=== PATIENT | female | born 2000 | race Caucasian/White ===

== ENCOUNTER 2021-03-30 06:10 | Emergency (ER) | payer SELFPAY ==
[2021-03-30 06:16] VITALS: BP 129/86; PULSE 96; RESP 18; TEMP 36.9; O2SAT 98; BMI 31.6
[2021-03-30 07:18] LABS: Add Urine Microscopic? YES; Bilirubin Urine Neg (Negative); Blood Urine 3+ (Negative); Glucose Urine UA Norm (Normal); Ketones Urine Negative (Negative); Leukocyte Esterase Urine Negative (Negative); Nitrate Urine Negative (Negative); Protein Urine Neg (Negative); Specific Gravity, Urine 1.015 (1.005-1.030); Urine Appearance Clear (CLEAR); Urine Color Yellow (Yellow); Urobilinogen Urine Norm (Negative); pH Urine 6 (5-7)
[2021-03-30 07:20] LABS: Bacteria Urine TRACE /hpf; Mucus Urine TRACE /hpf; RBC Urine 0-4 /hpf (0-2); WBC Urine 0-4 /hpf (0-5)
[2021-03-30 07:21] LABS: Add Urine Culture? No
--- NOTE | 2021-03-30 07:47 | W.ED.FEMALGU ---
HPI - Female Genitourinary General: Chief complaint: Vaginal Bleeding Stated complaint: Vaginal bleeding, cramping, Time Seen by Provider: 03/30/21 06:24 Source: patient Mode of arrival: ambulatory Limitations: no limitations History of Present Illness: HPI Narrative: Patient is a 20-year-old female here at approximately 3.5-4 months for concerns of cramping and vaginal bleeding that began around 2 AM this morning. Patient tells me she passed a large gush of blood. She states the blood did not appear to have clots or POC in it. She feels like bleeding has lightened since onset. Still has some minimal pelvic cramping. No vaginal discharge or odor. No new sexual partners or concern for STDs. Patient states was initially confirmed at a clinic in [place]. She has yet to follow-up with OB. MD elicited complaint: vaginal bleeding, pelvic pain and possible miscarriage Onset (ago): hour(s) Quality of pain: cramping Vaginal discharge: none Vaginal bleeding: moderate Exacerbating factors: none Relieving factors: none Associated symptoms: Reports no associated symptoms; Deny abdominal pain, nausea or vaginal discharge Treatment prior to arrival: none Sexual activity: Yes Patient : Yes Review of Systems Const: Denies: fever(s), chills, body aches, fatigue or malaise Eyes: Denies: change in vision Card: Denies: chest pain or palpitations Resp: Denies: dyspnea GI: Denies: abdominal pain, nausea, vomiting, diarrhea or change in stool character : Reports: vaginal bleeding and pelvic pain; Denies: flank pain, difficulty voiding, dysuria, urinary frequency, urinary urgency, hematuria, genital lesions, genital pruritis, vaginal odor or vaginal discharge Musc: Denies: neck pain or back pain Skin/Breast: Denies: rash Physical Exam Const: COMMON NORMALS: no acute distress, patient oriented x3, no limitations and alert GENERAL APPEARANCE: cooperative NUTRITIONAL APPEARANCE: overweight ORIENTATION/CONSCIOUSNESS: Yes awake, Yes oriented to person, Yes oriented to place and Yes oriented to time HENMT: COMMON NORMALS: normocephalic and atraumatic HEAD & SCALP: normocephalic and atraumatic Resp: COMMON NORMALS: normal respiratory effort and clear to auscultation bilaterally AUSCULTATION: clear to auscultation bilaterally Cardio: COMMON NORMALS: regular rate and regular rhythm RATE: regular rate RHYTHM: regular rhythm GI: COMMON NORMALS: Normal to inspection, nondistended, normoactive bowel sounds present, Soft to palpation, non-tender, No hepatosplenomegaly present and no masses PALPATION: Yes Soft to palpation and Yes No hepatosplenomegaly present : COMMON NORMALS: Yes no CVA tenderness BLADDER/KIDNEY EXAM: Yes no CVA tenderness Back/Pelvis: COMMON NORMALS: no CVA tenderness Extremity: COMMON NORMALS: normal to inspection, no calf tenderness and no pedal edema Neuro: COMMON NORMALS: patient oriented x3 SENSORIUM/ORIENTATION: Yes alert, Yes oriented to person, Yes oriented to place and Yes oriented to time Skin: COMMON NORMALS: no rashes or lesions noted GENERAL SKIN EXAM: no rashes or lesions noted Course Vital Signs: Vital signs: Vital Signs Temperature 98.4 F 03/30/21 06:16 Pulse Rate 95 03/30/21 08:58 Respiratory Rate 18 03/30/21 08:58 Blood Pressure 114/76 03/30/21 08:58 Pulse Oximetry 98 03/30/21 08:58 MDM - Female MDM Narrative: Medical decision making narrative: Patient has a blighted ovum. Will have her follow up with [facility] for further management and surveillance. Lab Data: Labs: Lab Results 03/30/21 03/30/21 03/30/21 Range/Units 06:47 08:56 08:56 WBC 7.0 (4.0-10.0) 10^3/ uL RBC 4.23 (4.1-5.3) 10^6/u L Hgb 13.1 (11.5-15.3) g/dL Hct 39.6 (37.0-47.0) % MCV 93.6 (81-99) fL MCH 31.0 (28.0-34.0) pg MCHC 33.1 (30.0-36.0) g/dL RDW 12.1 (12.1-15.1) % Plt Count 244 (130-400) 10^3/c mm MPV 9.5 (7.4-10.4) fL Neut % (Auto) 66.9 % Lymph % (Auto) 24.2 % [place] % (Auto) 5.3 % Eos % (Auto) 2.7 % Baso % (Auto) 0.6 % Neut # (Auto) 4.66 (1.8-7.7) 10^3/u L Lymph # (Auto) 1.7 (0.8-4.8) 10^3/u L [place] # (Auto) 0.4 (0.2-0.9) 10^3/u L Eos # (Auto) 0.2 (0.0-0.8) 10^3/u L Baso # (Auto) 0.0 (0.0-0.1) 10^3/u L Nucleated RBC % (a uto) 0 % Nucleated RBCs # 0.0 /100WBC Sodium 137 (136-145) mmol/L Potassium 4.2 (3.5-5.1) mmol/L Chloride 101 (98-107) mmol/L Carbon Dioxide 26 (22-29) mmol/L Anion Gap 14.2 (5-19) BUN 10 (6-20) mg/dL Creatinine 0.5 (0.5-0.9) mg/dL GFR Calculation 154.3 H (90-130) mL/min Glucose 94 (65-115) mg/dL Calculated Osmolal ity 283 L (285-295) mOsm/k g Calcium 8.7 (8.5-10.5) mg/dL Total Bilirubin 0.2 (0.15-1.2) mg/dL AST 13 (0-32) U/L ALT 12 (0-33) U/L Alkaline Phosphata se 66 (35-105) IU/L Total Protein 6.8 (6.6-8.7) g/dL Albumin 3.9 (3.5-5.2) g/dL Globulin 2.9 (1.3-4.6) g/dL Ser , [place] i-Qnt 4508.00 mIU/mL Urine Color Yellow (Yellow) Urine Appearance Clear (CLEAR) Urine pH 6 (5-7) Ur Specific Gravit y 1.015 (1.005-1.030) Urine Protein Neg (Negative) Urine Glucose (UA) Norm (Normal) Urine Ketones Negative (Negative) Urine Blood 3+ H (Negative) Urine Nitrate Negative (Negative) Urine Bilirubin Neg (Negative) Urine Urobilinogen Norm (Negative) mg/dL Ur Leukocyte Pooja ase Negative (Negative) Urine RBC 0-4 H (0-2) /hpf Urine WBC 0-4 H (0-5) /hpf Ur Squamous Epith Cells 5-10 H (0-5) /hpf Amorphous Sediment Not Reportable Urine Bacteria Trace (NONE) /hpf Urine Mucus Trace /hpf Imaging Data: US OB: Radiologist's impression: [facility] [address] [address] Ultrasound Report Signed Patient: Abdullahi Dubose Unit #: [id number] : [id number] Age/Sex: 20 / F ADM Date: 03/30/21 Loc: ER Room/Bed: Attending Dr: Ordering Provider/Ordering MD: Yuko Owens Date of Service: 03/30/21 Procedure(s): US OB lmt with transvaginal Accession Number(s): [id number] Report Number: [id number] WS: [id number] US OB lmt with transvaginal REASON FOR EXAM: reports 3.5-4 mo ; bleeding/cramping FINDINGS: The uterus contains a large empty collapsing sac with no identifiable embryo or yolk sac. No blood clots identified. Normal ovaries with normal blood flow are noted. There is no fluid in the cul-de-sac. No pelvic mass is suggesting ectopic is identified. US/US OB lmt with transvaginal IMPRESSION: Presumed blighted ovum. Dictated By: Mike Pereira Jr, MD Signed By: Mike Pereira Jr, MD Signed Date/Time: 03/30/2159 DD/ 0856 Discharge Plan Discharge Patient Disposition: Home Clinical Impression: Anembryonic Condition: Stable Discharge Orders: Discharge ED (Routine); Ordered 03/30/21 Ordered By: Yuko Owens Referrals: Jung Castillo, PHYSICAL THERAPY COORDINATOR-C [Primary Care Provider] - Activity Restrictions/Additional Instructions: As we discussed you need to follow-up with Women's Health. Case management should contact you to help you set you up with this appointment. You can return to the emergency department for severe vaginal bleeding or pain or any other concerns you may have. Coding Level of Care Code ED Varnisher Apprentice for Chg Fwd Exam Comprehensive
--- NOTE | 2021-03-30 07:54 | US_ITS ---
WS: [id number] US OB lmt with transvaginal REASON FOR EXAM: reports 3.5-4 mo ; bleeding/cramping FINDINGS: The uterus contains a large empty collapsing sac with no identifiable embryo or yolk sac. No blood cl ots identified. Normal ovaries with normal blood flow are noted. There is no fluid in the cul-de-sac. No pelvic mass is suggesting ectopic is identified. US/US OB lmt with transvaginal IMPRESSION: Presumed blighted ovum.
[2021-03-30 08:07] VITALS: BP 119/64; PULSE 97; RESP 18; O2SAT 99
[2021-03-30 08:58] VITALS: BP 114/76; PULSE 95; RESP 18; O2SAT 98
[2021-03-30 09:04] LABS: Basophils % 0.6 %; Eosinophils # 0.2 10^3/uL (0.0-0.8); Eosinophils % 2.7 %; Hematocrit 39.6 % (37.0-47.0); Hemoglobin 13.1 g/dL (11.5-15.3); Lymphocytes # 1.7 10^3/uL (0.8-4.8); Lymphocytes % 24.2 %; Mean Corpuscular HGB Conc 33.1 g/dL (30.0-36.0); Mean Corpuscular Volume 93.6 fL (81-99); Mean Platelet Volume 9.5 fL (7.4-10.4); Monocytes # 0.4 10^3/uL (0.2-0.9); Monocytes % 5.3 %; Neutrophils # 4.66 10^3/uL (1.8-7.7); Neutrophils % 66.9 %; Nucleated Red Blood Cells % 0 %; Platelet Count 244 10^3/cmm (130-400); Red Blood Count 4.23 10^6/uL (4.1-5.3); Red Cell Distribution Width 12.1 % (12.1-15.1)
[2021-03-30 09:33] LABS: Alanine Aminotransferase 12 U/L (0-33); Albumin Level 3.9 g/dL (3.5-5.2); Alkaline Phosphatase 66 IU/L (35-105); Anion Gap 14.2 (5-19); Aspartate Amino Transferase 13 U/L (0-32); Blood Urea Nitrogen 10 mg/dL (6-20); Calcium 8.7 mg/dL (8.5-10.5); Carbon Dioxide 26 mmol/L (22-29); Chloride 101 mmol/L (98-107); Globulin 2.9 g/dL (1.3-4.6); Glomerular Filtration Rate 154.3 mL/min (90-130); Glucose 94 mg/dL (65-115); Osmolality Calculated 283 mOsm/kg (285-295); Potassium 4.2 mmol/L (3.5-5.1); Sodium 137 mmol/L (136-145); Total Bilirubin 0.2 mg/dL (0.15-1.2); Total Protein 6.8 g/dL (6.6-8.7)
[2021-03-30 09:40] VITALS: BP 125/83; PULSE 91; RESP 18; O2SAT 97
--- NOTE | 2021-03-30 09:59 | DCPLANNER ---
Addendum entered by Kristy Goodwin 04/13/21 09:40: comsec manager called the [facility], spoke with Aleena to confirm that a follow up appointment had been scheduled for patient. comsec manager was told that when clinic called patient to schedule a follow up appointment, that phone number was disconnected. Clinic sent a letter to patient informing patient to call clinic to schedule an appointment. Original Note: comsec manager had message to schedule a follow up appointment for patient with [facility]. comsec manager called the [facility], spoke with Aleena, gave clinic patients information. comsec manager was told that patients information would be printed and reviewed. Clinic will call patient with appointment information.
== END 2021-03-30 09:40 | disposition home or self-care (01) ==
PROVIDERS: Emergency Medicine; Emergency Provider Physician Assistant; PCP Nurse Practitioner
DX: O02.0 Blighted ovum and nonhydatidiform mole (principal)
CPT/HCPCS: 76815; 76817; 80053; 81001; 84702; 85025; 99283

== ENCOUNTER 2021-03-31 18:28 | Emergency (ER) | payer SELFPAY ==
[2021-03-31 18:58] VITALS: BP 127/82; PULSE 119; RESP 22; TEMP 36.5; O2SAT 96; BMI 31.6
--- NOTE | 2021-03-31 19:03 | W.ED.FEMALGU ---
HPI - Female Genitourinary General: Chief complaint: Urogenital-Female Stated complaint: severe cramping heavy bleeding Time Seen by Provider: 03/31/21 18:56 Source: patient Mode of arrival: ambulatory Limitations: no limitations History of Present Illness: HPI Narrative: 20-year-old female who is here with vaginal bleeding. She states that she is roughly 5 to 6 weeks . She was seen yesterday and had a quantitative in the 4000s and ultrasound showed a blighted ovum. States today started having severe lower abdominal cramping along with vaginal bleeding. She states she is passing multiple clots and going through multiple pads. She denies any worsening improving factors. Denies any vomiting or diarrhea. Associated symptoms: Deny abdominal pain, headache(s) or nausea Review of Systems Const: Denies: fever(s), chills, body aches or change in appetite Eyes: Denies: blurry vision or eye discomfort ENMT: Denies: throat pain or dental pain Card: Denies: chest pain Resp: Denies: dyspnea GI: Denies: abdominal pain, nausea, vomiting or diarrhea : Reports: vaginal bleeding Musc: Denies: neck pain or back pain Skin/Breast: Denies: rash Neuro: Denies: headache(s) Psych: Denies: depression Harris/Lymph: Denies: easy bruising All/Imm: Denies: urticaria Physical Exam Const: COMMON NORMALS: no acute distress, patient oriented x3 and healthy appearing HENMT: COMMON NORMALS: normocephalic and atraumatic HEAD & SCALP: normocephalic and atraumatic Eye: COMMON NORMALS: Equal, round and reactive pupils present and EOMs intact bilaterally PUPIL: Yes Equal, round and reactive pupils present Neck/C-Spine: COMMON NORMALS: full ROM and supple Chest: COMMONS NORMALS: normal inspection of the chest and normal palpation of entire chest wall Resp: COMMON NORMALS: normal respiratory effort, No retractions, No use of accessory muscles and clear to auscultation bilaterally AUSCULTATION: clear to auscultation bilaterally Cardio: COMMON NORMALS: regular rate, regular rhythm and No murmurs present (Cardio) RATE: regular rate RHYTHM: regular rhythm GI: COMMON NORMALS: Normal to inspection, nondistended, normoactive bowel sounds present, Soft to palpation, non-tender and no masses PALPATION: Yes Soft to palpation : OTHER: Large amount of blood in vaginal vault. Patient did have a grounding sac stuck in her cervix. Is able to remove the whole sac and bleeding is since resolved. Extremity: COMMON NORMALS: normal to inspection and full ROM Neuro: COMMON NORMALS: patient oriented x3, moves all extremities and no focal motor deficits Psych: COMMON NORMALS: mental status grossly normal, Normal thought process present and cooperative THOUGHT PROCESS: Normal thought process present Skin: COMMON NORMALS: no rashes or lesions noted and no wounds GENERAL SKIN EXAM: no rashes or lesions noted Course Vital Signs: Vital signs: Vital Signs Temperature 97.7 F 03/31/21 18:58 Pulse Rate 102 H 03/31/21 20:30 Respiratory Rate 16 03/31/21 20:30 Blood Pressure 123/72 03/31/21 19:45 Pulse Oximetry 97 03/31/21 20:30 MDM - Female MDM Narrative: Medical decision making narrative: Patient presents here with miscarriage. Sac was stuck the cervix is able to remove and patient was observed. She had no further bleeding. Her hemoglobin here is normal. Her Rh type is positive. Ultrasound yesterday showed a blighted ovum. She is to follow-up with her OB and return if worsening. She understands agrees to plan. Lab Data: Labs: Lab Results 03/31/21 03/31/21 Range/Units 20:16 20:16 WBC 17.5 H (4.0-10.0) 10^3/ uL RBC 3.84 L (4.1-5.3) 10^6/u L Hgb 12.0 (11.5-15.3) g/dL Hct 35.9 L (37.0-47.0) % MCV 93.5 (81-99) fL MCH 31.3 (28.0-34.0) pg MCHC 33.4 (30.0-36.0) g/dL RDW 12.2 (12.1-15.1) % Plt Count 220 (130-400) 10^3/c mm MPV 9.9 (7.4-10.4) fL Neut % (Auto) 90.9 % Lymph % (Auto) 4.9 % [place] % (Auto) 3.5 % Eos % (Auto) 0.1 % Baso % (Auto) 0.3 % Neut # (Auto) 15.91 H (1.8-7.7) 10^3/u L Lymph # (Auto) 0.9 (0.8-4.8) 10^3/u L [place] # (Auto) 0.6 (0.2-0.9) 10^3/u L Eos # (Auto) 0.0 (0.0-0.8) 10^3/u L Baso # (Auto) 0.1 (0.0-0.1) 10^3/u L Nucleated RBC % (a uto) 0 % Nucleated RBCs # 0.0 /100WBC Ser , Dillan i-Qnt 1907.00 mIU/mL Discharge Plan Discharge Patient Disposition: Home Clinical Impression: Miscarriage Condition: Stable Prescriptions: New hydrocodone-acetaminophen 5-325 mg tablet 1 tab PO Q6H PRN (Reason: pain) Qty: 14 RF: 0 Discharge Orders: Discharge ED (Routine); Ordered 03/31/21 Ordered By: Isra Alatorre Referrals: Jung Castillo, DINING ROOM HOST-C [Primary Care Provider] - 1-3 days Discharge Diet: Advance as tolerated Discharge Activity: Resume usual activity Patient Instructions: Spontaneous Miscarriage (ED), Opioid Safety Coding Level of Care Code ED Fire Observer for Tram Fwd Exam Comprehensive
[2021-03-31 19:22] VITALS: BP 135/84; PULSE 102; RESP 18; O2SAT 96
[2021-03-31 19:45] VITALS: BP 123/72; PULSE 101; RESP 18; O2SAT 96
[2021-03-31 20:30] VITALS: PULSE 102; RESP 16; O2SAT 97
[2021-03-31 20:35] LABS: Basophils # 0.1 10^3/uL (0.0-0.1); Basophils % 0.3 %; Eosinophils % 0.1 %; Hematocrit 35.9 % (37.0-47.0); Lymphocytes # 0.9 10^3/uL (0.8-4.8); Lymphocytes % 4.9 %; Mean Corpuscular HGB Conc 33.4 g/dL (30.0-36.0); Mean Corpuscular Hemoglobin 31.3 pg (28.0-34.0); Mean Corpuscular Volume 93.5 fL (81-99); Mean Platelet Volume 9.9 fL (7.4-10.4); Monocytes # 0.6 10^3/uL (0.2-0.9); Monocytes % 3.5 %; Neutrophils # 15.91 10^3/uL (1.8-7.7); Neutrophils % 90.9 %; Nucleated Red Blood Cells % 0 %; Platelet Count 220 10^3/cmm (130-400); Red Blood Count 3.84 10^6/uL (4.1-5.3); Red Cell Distribution Width 12.2 % (12.1-15.1); White Blood Count 17.5 10^3/uL (4.0-10.0)
[2021-03-31] MEDS: sodium chloride 0.9% 1,000 ML 999 ML IV (20:37)
[2021-03-31] MEDS: miSOPROStol 200 mcg Tablet 600 MCG PO (20:38)
[2021-03-31 21:30] VITALS: BP 112/87; PULSE 110; RESP 16; O2SAT 99
== END 2021-03-31 21:34 | disposition home or self-care (01) ==
PROVIDERS: Emergency Provider Emergency Medicine; PCP Nurse Practitioner
DX: O03.9 Complete or unspecified spontaneous abortion without complication (principal)
CPT/HCPCS: 84702; 85025; 86850; 86900; 96360; 99283; J7030

== ENCOUNTER → 2022-01-19 10:00 | Outpatient (BNVA) | payer SELFPAY | PROVIDERS: PCP Nurse Practitioner; Visit Provider Obstetrics & Gynecology | DX: Z34.90 Encounter for supervision of normal pregnancy, unspecified, unspecified trimester (principal) | CPT/HCPCS: 80307; 81000; 87086; 87491; 87591; 87661; 88175 ==

== ENCOUNTER → 2022-01-24 15:33 | Outpatient (BNVA) | payer SELFPAY | PROVIDERS: PCP Nurse Practitioner; Visit Provider Obstetrics & Gynecology | DX: Z34.90 Encounter for supervision of normal pregnancy, unspecified, unspecified trimester (principal) | CPT/HCPCS: 84443; 85025; 86592; 86762; 86803; 86850; 86900; 87340 ==

== ENCOUNTER → 2022-03-03 11:02 | Outpatient (BNVA) | payer SELFPAY | PROVIDERS: PCP Nurse Practitioner; Visit Provider Obstetrics & Gynecology | DX: Z34.90 Encounter for supervision of normal pregnancy, unspecified, unspecified trimester (principal) | CPT/HCPCS: 82950; 85025 ==

== ENCOUNTER → 2022-03-24 15:23 | Outpatient (BNVA) | payer SELFPAY | PROVIDERS: PCP Nurse Practitioner; Visit Provider Obstetrics & Gynecology | DX: Z34.90 Encounter for supervision of normal pregnancy, unspecified, unspecified trimester (principal) | CPT/HCPCS: 81000 ==

== ENCOUNTER → 2022-04-11 11:35 | Outpatient (BNVA) | payer SELFPAY | PROVIDERS: PCP Nurse Practitioner; Visit Provider Obstetrics & Gynecology | DX: Z34.90 Encounter for supervision of normal pregnancy, unspecified, unspecified trimester (principal) | CPT/HCPCS: 81000; 87081 ==

== ENCOUNTER 2022-04-22 14:12 | Outpatient (CLI) | payer BC, SELFPAY ==
[2022-04-22 14:12] VITALS: BMI 39.9
[2022-04-22 14:38] VITALS: BP 122/78; PULSE 99; RESP 16
[2022-04-22 14:40] VITALS: TEMP 35.9
[2022-04-22 14:52] VITALS: BP 129/86; PULSE 101
[2022-04-22 15:00] LABS: Basophils % 0.3 %; Eosinophils # 0.1 10^3/uL (0.0-0.8); Hematocrit 37.5 % (37.0-47.0); Hemoglobin 12.5 g/dL (11.5-15.3); Lymphocytes # 1.9 10^3/uL (0.8-4.8); Lymphocytes % 15.3 %; Mean Corpuscular HGB Conc 33.3 g/dL (30.0-36.0); Mean Corpuscular Hemoglobin 31.1 pg (28.0-34.0); Mean Corpuscular Volume 93.3 fl (81-99); Mean Platelet Volume 10.8 fL (7.4-10.4); Monocytes # 0.6 10^3/uL (0.2-0.9); Neutrophils # 9.54 10^3/uL (1.8-7.7); Neutrophils % 77.9 %; Nucleated Red Blood Cells % 0 %; Platelet Count 222 10^3/cmm (130-400); Red Blood Count 4.02 10^6/uL (4.1-5.3); Red Cell Distribution Width 12.3 % (12.1-15.1); White Blood Count 12.3 10^3/uL (4.0-10.0)
[2022-04-22 15:07] VITALS: BP 122/73; PULSE 91
[2022-04-22 15:10] LABS: Add Urine Culture? No; Bilirubin Urine Neg (Negative); Blood Urine Neg (Negative); Glucose Urine UA Norm (Normal); Ketones Urine Negative (Negative); Leukocyte Esterase Urine Negative (Negative); Nitrate Urine Negative (Negative); Protein Urine Neg (Negative); Specific Gravity, Urine 1.005 (1.005-1.030); Squamous Epithelial Cell Urine 0-4 /hpf (0-5); Urine Appearance Clear (CLEAR); Urine Color Yellow (Yellow); Urobilinogen Urine Norm (Negative); WBC Urine 0-4 /hpf (0-5); pH Urine 6.5 (5-7)
[2022-04-22 15:21] LABS: Urine Creatinine 80 mg/dL (28-217); Urine Protein Random 8 mg/dL
[2022-04-22 15:22] VITALS: BP 117/70; PULSE 93
[2022-04-22 15:26] LABS: Alanine Aminotransferase 17 U/L (0-33); Albumin Level 3.4 g/dL (3.5-5.2); Alkaline Phosphatase 158 U/L (35-105); Anion Gap 15.5 (5-19); Aspartate Amino Transferase 13 U/L (0-32); Blood Urea Nitrogen 6 mg/dL (6-20); Calcium 8.9 mg/dL (8.5-10.5); Carbon Dioxide 22 mmol/L (22-29); Chloride 102 mmol/L (98-107); Globulin 3.3 g/dL (1.3-4.6); Glomerular Filtration Rate 197.8 mL/min (90-130); Glucose 86 mg/dL (65-115); Osmolality Calculated 279 mOsm/kg (285-295); Potassium 3.5 mmol/L (3.5-5.1); Sodium 136 mmol/L (136-145); Total Bilirubin 0.2 mg/dL (0.15-1.2); Total Protein 6.7 g/dL (6.6-8.7); Uric Acid 4.8 mg/dL (2.4-5.7)
[2022-04-22 15:37] VITALS: BP 120/70; PULSE 85
== END 2022-04-22 15:45 | disposition home or self-care (01) ==
LOC: OPOB 14:17 → OBGYN 14:18
PROVIDERS: Obstetrics & Gynecology; PCP Nurse Practitioner; Visit Provider Obstetrics & Gynecology
DX: O16.9 Unspecified maternal hypertension, unspecified trimester (principal); Z3A.00 Weeks of gestation of pregnancy not specified
CPT/HCPCS: 80053; 81000; 81001; 82570; 84156; 84550; 85025

== ENCOUNTER → 2022-05-06 14:18 | Outpatient (BNVA) | payer BC, SELFPAY | PROVIDERS: PCP Obstetrics & Gynecology; Visit Provider Obstetrics & Gynecology | DX: O13.9 Gestational [pregnancy-induced] hypertension without significant proteinuria, unspecified trimester (principal); Z3A.00 Weeks of gestation of pregnancy not specified | CPT/HCPCS: 81000 ==

== ENCOUNTER 2022-05-15 04:23 | Inpatient (IN) | payer BC, SELFPAY ==
[2022-05-15] VITALS (98 sets, daily range): BP systolic 91–164; BP diastolic 50–97; PULSE 73–203; RESP 17–18; TEMP 36.8; O2SAT 97–100; BMI 40.7
[2022-05-15 03:52] LABS: Nitrazine Paper, PH Inconclusive
[2022-05-15 03:53] LABS: Actim Prom Positive
[2022-05-15 04:27] LABS: Basophils % 0.4 %; Eosinophils # 0.2 10^3/uL (0.0-0.8); Eosinophils % 1.7 %; Hematocrit 36.7 % (37.0-47.0); Hemoglobin 12.2 g/dL (11.5-15.3); Lymphocytes % 17.5 %; Mean Corpuscular HGB Conc 33.2 g/dL (30.0-36.0); Mean Corpuscular Hemoglobin 30.9 pg (28.0-34.0); Mean Corpuscular Volume 92.9 fl (81-99); Mean Platelet Volume 10.8 fL (7.4-10.4); Monocytes # 0.7 10^3/uL (0.2-0.9); Monocytes % 6.4 %; Neutrophils # 8.23 10^3/uL (1.8-7.7); Neutrophils % 73.6 %; Nucleated Red Blood Cells % 0 %; Platelet Count 200 10^3/cmm (130-400); Red Blood Count 3.95 10^6/uL (4.1-5.3); Red Cell Distribution Width 12.5 % (12.1-15.1); White Blood Count 11.2 10^3/uL (4.0-10.0)
[2022-05-15] MEDS: lactated ringers 1,000 ML 999 ML IV ×2 (04:47→06:12)
--- NOTE | 2022-05-15 05:50 | ANES.PREANE2 ---
Pre-Anesthetic Assessment Height/Weight: Height 1.65 m Weight 111.13 kg Pulse BP 94 132/90 05/15/22 05:37 05/15/22 05:37 Preop Diagnosis: labor pain epidural Familial anesthetic complications: none Was Beta Angeli taken within 24 hours: N/A Was Clonidine taken within 24 hours: N/A Social No alcohol and No tobacco Exam alert, oriented x 3, clear to auscultation bilaterally and regular rate & rhythm Airway Submandibular: within normal limits Cervical ROM: within normal limits Mallampati: Class II Dentition: full Pulmonary None reported CV/HEM None reported None reported Hepatic None reported GI Gastroesophageal Reflux Disease Metabolic None reported Musc/skel None reported Neuropsych None reported Anesthetic Plan ASA status: 2 Anesthesia: Regional (specify below) Risk of > 500 ml blood loss (7ml/kg in children): No Medications/Allergies Home Medications Medication Instructions Recorded Confirmed Last Taken Type PNV 153-FA 400 mcg-om3 35 mg-dha 1 tab PO DAILY 01/19/22 05/06/22 04/21/22 20:00 History 25 mg-epa 5 mg-fish oil chew 1 tab tablet ( Gummies) Allergies Allergy/AdvReac Type Severity Reaction Status Date / Time No Known Allergies Allergy Verified 05/06/22 14:07 Current Medications Generic Name Dose Route Start Last Admin Trade Name Freq PRN Reason Stop Dose Admin Lactated Ringer's 1,000 mls @ 999 mls/hr 05/15/22 04:37 05/15/22 04:47 Lactated Ringers IV 999 mls/hr .Q1H1M PRN Administration See label comments PFSH Anesthesia Medical History No pertinent past medical history neghx: htn, dm, thyroid, dvt/pe PCP: none Surgical History History of 2014 Family History Grandmother Breast cancer maternal Diabetes maternal Family/Other Breast cancer maternal great grandma Diabetes maternal and paternal great grandmother Mother Hypertension Grandfather Hypertension maternal Stroke maternal Denies family history of Colon cancer Ovarian cancer Heart disease Hypercholesteremia Uterine cancer Thyroid disease Social History Smoking and tobacco status: former smoker Female Reproductive History Date of last menstrual period: 12/22/20 : 5 Data Anesthesia : 05/15/22 04:12 Short CBC 05/15/22 Range/Units 04:12 WBC 11.2 H (4.0-10.0) 10^3/uL Hgb 12.2 (11.5-15.3) g/dL Hct 36.7 L (37.0-47.0) % MCV 92.9 (81-99) fl Plt Count 200 (130-400) 10^3/cmm Neut % (Auto) 73.6 % Neut # (Auto) 8.23 H (1.8-7.7) 10^3/uL Cardiac Studies: No Data to Display
--- NOTE | 2022-05-15 06:27 | P.ANES_ITS ---
Anesthesia Procedures Procedure/Date: 05/15/22 epidural Procedure Narrative: epidural complete, bolus given, epidural pump initiated with AUTOMATIC LATHE TENDER education given, vitals taken during procedure using OBIX system and satisfactory throughout, patient admits to decrease pain, report of procedure to OB RN Epidural: Time Out Performed: Yes Consents Signed: Procedure Consent Consent: requested by attending/covering physician, from patient, risks and benefits reviewed and patient agrees to proceed Lumbar Level: L3-L4 Epidural position: sitting Epidural procedure: sterile prep of area, 1% lidocaine to numb the area (3 mL), 18 g needle, negative for paresthesia passed, neg for paresthesia, test dose given, 1.5% xylocaine 1:200k epi (5 mL), 0.2% Ropivacaine bolus ml (5 mL), placed PCEA, no systemic response, sterile dressing applied, L.U.D. no apparent complications and 0.2% Ropiavacaine @ mls/hr (13 mL/hr)
[2022-05-15 06:42] LABS: Amphetamines Screen Urine Negative (Negative); Barbiturates Screen Urine Negative (Negative); Benzodiazepines Screen Urine Negative (Negative); Cocaine Screen Urine Negative (Negative); Opiate Screen Urine Negative (Negative); PCP Screen Urine Negative (Negative); THC Screen Urine Positive (Negative)
--- NOTE | 2022-05-15 08:52 | P.HPUD_ITS ---
Labor & Delivery H&P Update Date of Procedure: May 15, 2022 Date H&P Performed: 05/06/22 Changes to previous documentation: Abdullahi is a 21-year-old G5, P1 031 with an IUP 41W2D dated by an 18-week ultrasound. She presented to L&D early this morning after experiencing gross rupture of membranes at approximately 0230 on 05/15/2022. Reports that painful uterine contractions started at 2300 on 05/14/2022. She has history of having 1 primary section secondary to breech presentation. This gestation is complicated by class III obesity, history of section, and desire for TOLAC/. She is GBS negative. She is accompanied by her Yamil, they have another son at home, Chadwick Sheldon. The couple is expecting their 2nd son, Abihjit Perez. Admission Diagnosis: * IUP 41W2D * Spontaneous rupture of membranes (SROM) * Class III obesity Preop diagnosis: labor pain Primary indication for procedure: Spontaneous rupture of membranes in early labor with a history of section. Planned procedure: TOLAC/
--- NOTE | 2022-05-15 08:53 | P.PN_ITS ---
TAPROOM ATTENDANT Subjective Subjective: Interval history: Abdullahi is a 21-year-old G5, P1 031 with an IUP 41W2D dated by an 18-week ultrasound. She presented to L&D early this morning after experiencing gross rupture of membranes at approximately 0230 on 05/15/2022. Reports that painful uterine contractions started at 2300 on 05/14/2022. She has history of having 1 primary section secondary to breech presentation. This gestation is complicated by class III obesity, history of section, and desire for TOLAC/. She is GBS negative. She is accompanied by her Yamil, they have another son at home, Chadwick Sheldon. The couple is expecting their 2nd son, Abhijit Perez. Since arrival has had an epidural placed without incident. Informed Consent for /TOLAC: Approximately 60 to 80% of appropriate candidate to attempt will be successful. A avoids major abdominal surgery, lowers risk of hemorrhage and infection, and shortens recovery. It may also help avoid the possible future risks of having multiple such as hysterectomy, bowel and bladder injury, transfusion of blood products, infection, and abnormal placenta conditions (placenta previa and placenta accreta). Both repeat and a TOLAC carry risks including maternal hemorrhage, infection, operative injury, blood clots, hysterectomy, and . Both maternal injury recurrent history a TOLAC happens when a repeat becomes necessary after the TOLAC fails. A successful has fewer complications then an elective repeat while a failed TOLAC has more complications than an elective repeat . Patient expressed understanding and desires to proc eed with a trial of labor with the ultimate goal of delivering vaginally. Labor: Dilation (cm): 6 Effacement (%): 80 Station: 0 Amniotic Membrane Status: Ruptured Monitor Mode: External Contraction Frequency: 3 (2-3) Contraction Pattern: Irregular Status: Category I (briefly Category II) Vitals/I&O/Wt Last Vital Signs Temp 98.2 F 05/15/22 04:00 Pulse 82 05/15/22 08:41 Resp 17 05/15/22 07:19 BP 115/63 05/15/22 08:41 Pulse Ox 99 05/15/22 08:12 O2 Del Method 05/15/22 03:53 05/14/22 05/15/22 05/15/22 22:59 06:59 14:59 Intake Total 1000 / 1000 Balance 1000 / 1000 Weight last 48 hrs Weight 245 lb Physical Exam Const: COMMON NORMALS: no acute distress, patient oriented x3 and alert Neuro: COMMON NORMALS: patient oriented x3 SENSORIUM/ORIENTATION: Yes alert Psych: COMMON NORMALS: mental status grossly normal, Normal thought process present, cooperative, normal affect and speech normal SPEECH: Yes normal speech THOUGHT PROCESS: Normal thought process present Urinary Catheter Management: Espinoza: Cath Placed During This Visit: yes Reason for Continuing Indwelling Catheter: Accurate Measurement of Urinary Output in Critically Ill Patients Urinary Catheter Date of Insertion: 05/15/22 Urinary Catheter Time of Insertion: 06:42 Data : 05/15/22 04:12 A&P Assessment and plan (1) 41 weeks gestation of : Status: Acute (2) Spontaneous rupture of membranes: * Initiate Pitocin augmentation. * Continue to titrate epidural. * Anticipate . Status: Acute (3) Alteration in comfort associated with uterine contractions: Status: Acute (4) Obesity (BMI 30-39.9): Status: Acute Attestations Medical Necessity Statement*: TOLAC, spontaneous rupture of membranes Coding Level of Care Code Acute Facility Manager Histology for Chg Fwd Diagnoses 41 weeks gestation of Z3A.41 Spontaneous rupture of membranes Alteration in comfort associated with uterine contractions N85.8 Obesity (BMI 30-39.9) E66.9
[2022-05-15] MEDS: oxytocin 30 UNIT/500 ML BAG IV (10:30)
[2022-05-15] MEDS: ondansetron 2 mg/ML SDV 2 mL 4 MG IVP (10:58)
--- NOTE | 2022-05-15 13:06 | PM.OBGYPN ---
COLORER MACHINE Subjective Subjective: Interval history: Abdullahi is a 21-year-old G5, P1 031 with an IUP 41W2D dated by an 18-week ultrasound. She presented to L&D early this morning after experiencing gross rupture of membranes at approximately 0230 on 05/15/2022. Reports that painful uterine contractions started at 2300 on 05/14/2022. She has history of having 1 primary section secondary to breech presentation. This gestation is complicated by class III obesity, history of section, and desire for TOLAC/. She is GBS negative. She is accompanied by her Yamil, they have another son at home, Chadwick Sheldon. The couple is expecting their 2nd son, Abhijit Perez. Since arrival has had an epidural placed without incident. Pitocin is currently infusing at 6 milliunits/min. Labor: Pain Control: tolerating well Dilation (cm): 9 Effacement (%): 90 Station: 0 Amniotic Membrane Status: Ruptured Monitor Mode: External Contraction Frequency: 3 (2-3) Contraction Pattern: Regular Status: Category II (Baseline 125 /moderate variability/15 x 15 accelerations present/variable decelerations present) Vitals/I&O/Wt Last Vital Signs Temp 98.2 F 05/15/22 04:00 Pulse 77 05/15/22 12:58 Resp 17 05/15/22 07:19 BP 91/50 05/15/22 12:58 Pulse Ox 99 05/15/22 08:12 O2 Del Method 05/15/22 03:53 05/14/22 05/15/22 05/15/22 22:59 06:59 14:59 Intake Total 1000 / 1000 343 / 343 Balance 1000 / 1000 343 / 343 Weight last 48 hrs Weight 245 lb Physical Exam Urinary Catheter Management: Espinoza: Cath Placed During This Visit: yes Reason for Continuing Indwelling Catheter: Accurate Measurement of Urinary Output in Critically Ill Patients Urinary Catheter Date of Insertion: 05/15/22 Urinary Catheter Time of Insertion: 06:42 Data : 05/15/22 04:12 A&P Assessment and plan (1) Obesity (BMI 30-39.9): Status: Acute (2) Alteration in comfort associated with uterine contractions: Status: Acute (3) Spontaneous rupture of membranes: Continue to titrate Pitocin. Continue to titrate epidural. Anticipate . Status: Acute (4) 41 weeks gestation of : Status: Acute Attestations Medical Necessity Statement*: TOLAC, spontaneous rupture of membranes Coding Level of Care Code Acute Sales Account Representative for Chg Fwd Diagnoses Obesity (BMI 30-39.9) E66.9 Alteration in comfort associated with uterine contractions N85.8 Spontaneous rupture of membranes 41 weeks gestation of Z3A.41
--- NOTE | 2022-05-15 15:37 | P.PCNOB_ITS ---
Delivery Note: Date of delivery: May 15, 2022 Pre-delivery diagnoses: * IUP 41W2D * Spontaneous rupture of membranes (SROM) * History of primary section 8 years ago Post-delivery diagnoses: Status post normal spontaneous vaginal delivery after primary section. Procedure: * Trial of labor after (TOLAC) followed by vaginal after primary section () * Repair of second-degree laceration Delivering Physician: Chaparrita Diaz MD, FACOG Estimated blood loss (mL): 250 Findings: Viable male , Lily Perez: Weight: 3545 g (7 lbs and 13oz) scores: 9 at one minute and 9 at five minutes Delivery time: May 15, 2022 at 1452 Pre-Delivery Course: Abdullahi is a 21-y ear-old G5, P1 031 with an IUP 41W2D dated by an 18-we ek ultrasound.? Julianna french presented to L&D early this mornin g after experienci ng gross rupture o f membranes at estelle roximately 0230 on 05/15/2022.? Repor kim that painful u terine contraction s started at 2300 on 05/14/2022.? She has history of mccain ving 1 primary nghia arean section seco ndary to breech pr esentation approxi mately 8 years ago .? This gestation is complicated by class III obesity, history of chuck an section, and de sire for TOLAC/VBA C.? She is?GBS neg ative without bloo d type O/Rh+. Sin ce arrival had an epidural placed wi thout incident in Pitocin labor augm entation.? She is accompanied by he r ?Yamil, the y have another son at home,?Glen Sheldon.? The couple ultimately had a 2nd son,?Abhijit Jackson. Delivery: Upon achieving complete dilation, 3+ station, and experiencing extreme pressure Griffin was placed in a modified Susana position. She was instructed on pushing and she pushed very effectively. With coaching the patient pushed and brought the infant's head to the perineum. The perineum appeared adequate. The patient pushed again and the head crowned in the JONAH position. The anterior shoulder was delivered with a downward motion, the posterior shoulder delivered with an upward motion, and the remainder of the 's body delivered without any difficulty. cried spontaneously asleep and was placed on the mother's abdomen and resuscitated by the rn stars. Delayed cord clamping was performed. Cord blood was obtained. Pitocin was administered and the placenta delivered spontaneously and was found to be intact and complete with a centrally inserted three-vessel cord. Viable male , Lily Perez: Weight: 3545 g (7 lbs and 13oz) scores: 9 at one minute and 9 at five minutes Delivery time: May 15, 2022 at 1452 Post-Delivery Status: skin to skin with mother and father present History History History 5 Term 1 0 Miscarriages/Ectopic 3 Living Children 1 A&P Assessment and plan (1) , delivered, current hospitalization: Initiate routine care Status: Acute (2) care and examination immediately after delivery: Status: Acute (3) Second degree laceration of perineum, delivered, current hospitalization: Status: Acute Coding Level of Care Code Acute Emergency Management Program Specialist for Chg Fwd Diagnoses , delivered, current hospitalization O34.219 care and examination immediately after delivery Z39.0 Second degree laceration of perineum, delivered, current hospitalization O70.1
--- NOTE | 2022-05-15 18:18 | PC.NURSE ---
Bette with [facility] division at bedside
[2022-05-15] MEDS: docusate sodium 100 mg Capsule PO (20:18)
[2022-05-15] MEDS: benzocaine-menthol 78 gm Canister 1 SPRAY TOPICAL (20:18)
[2022-05-15] MEDS: ibuprofen 800 mg tablet PO (20:18)
[2022-05-16 03:47] VITALS: BP 121/62; PULSE 88
[2022-05-16 04:02] LABS: Hematocrit 30.5 % (37.0-47.0); Hemoglobin 9.9 g/dL (11.5-15.3); Mean Corpuscular HGB Conc 32.5 g/dL (30.0-36.0); Mean Corpuscular Hemoglobin 30.7 pg (28.0-34.0); Mean Corpuscular Volume 94.7 fl (81-99); Mean Platelet Volume 10.7 fL (7.4-10.4); Platelet Count 167 10^3/cmm (130-400); Red Blood Count 3.22 10^6/uL (4.1-5.3); Red Cell Distribution Width 12.7 % (12.1-15.1); White Blood Count 11.9 10^3/uL (4.0-10.0)
[2022-05-16 07:57] VITALS: BP 116/95; PULSE 99
[2022-05-16 08:17] VITALS: RESP 17
[2022-05-16] MEDS: ibuprofen 800 mg tablet PO (08:52)
[2022-05-16] MEDS: docusate sodium 100 mg Capsule PO (08:52)
--- NOTE | 2022-05-16 11:55 | P.DS_ITS ---
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 She presented to L&D?early during the morning of 05/15/2022 after experiencing gross rupture of membranes at approximately 0230 on?05/15/2022.? Reported that painful uterine contractions started at 2300on 05/14/2022.? She?has history of having 1 primary section secondary to breech presentation approximately 8yearsago.? This gestation is complicated by class III obesity,?history of section, and desire for TOLAC/.? She is?GBS negative with blood type O/Rh+. Ultimately she was consented for TOLAC/, she received epidural without incident, her natural labor was augmented with Pitocin, and she ultimately had a term vaginal delivery complicated by second-degree laceration. She is still ?accompanied by her ?Yamil, they have another son?at home,? Chadwick Sheldon.? The couple?ultimately had a 2nd son,?Abhijit Perez. Viable male , ?Abhijit Perez whom Abdullahi has elected to formula feed. Abhijit is doing well. Weight:?3545 g (7 lbs and 13oz) scores:?9 at one minute and 9 at five minutes Delivery time:?May 15, 2022 at 1452 Since delivery vaginal bleeding/lochia has been light, patient is ambulating without any assistance, denies dizziness, denies headache, denies right upper quadrant pain, and denies visual changes. She is tolerating p.o. intake and her is feeding well. She has no problems with voiding and the segment of milestones for discharge. She requests discharge home at the 24-hour olvin. Status: Acute (2) care and examination immediately after delivery: Status: Acute (3) Second degree laceration of perineum, delivered, current hospitalization: Status: Acute Reason for Visit Reason for Visit: possible SROM Hospital Course Hospital Course Abdullahi is a 21-year-old G5, P2 032?status post TOLAC/ at IUP 41W2D?dated by an 18-week ultrasound.? She presented to L&D?early during the morning of 05/15/2022 after experiencing gross rupture of membranes at approximately 0230 on?05/15/2022.? Reported that painful uterine contractions started at 2300on 05/14/2022.? She?has history of having 1 primary section secondary to breech presentation approximately 8yearsago.? This gestation is complicated by class III obesity,?history of section, and desire for TOLAC/.? She is?GBS negative with blood type O/Rh+. Ultimately she was consented for TOLAC/, she received epidural without incident, her natural labor was augmented with Pitocin, and she ultimately had a term vaginal delivery complicated by second-degree laceration. She is still ?accompanied by her ?Yamil, they have another son?at home,? Chadwick Sheldon.? The couple?ultimately had a 2nd son,?Abhijit Perez. Viable male , ?Abhijit Perez whom Abdullahi has elected to formula feed. Abhijit is doing well. Weight:?3545 g (7 lbs and 13oz) scores:?9 at one minute and 9 at five minutes Delivery time:?May 15, 2022 at 1452 Since delivery vaginal bleeding/lochia has been light, patient is ambulating without any assistance, denies dizziness, denies headache, denies right upper quadrant pain, and denies visual changes. She is tolerating p.o. intake and her infant is feeding well. She has no problems with voiding and the segment of milestones for discharge. She requests discharge home at the 24-hour olvin. Information Peripartum Data: Delivery Method: Vaginal Physical Exam Const: COMMON NORMALS: no acute distress, patient oriented x3, no limitations and alert; negative for average body habitus (Consistent with the disease of obesity) HENMT: COMMON NORMALS: normocephalic and atraumatic HEAD & SCALP: normocephalic and atraumatic Eye: COMMON NORMALS: EOMs intact bilaterally Neck/C-Spine: COMMON NORMALS: full ROM and supple Chest: COMMONS NORMALS: normal inspection of the chest and normal inspection of the breasts Resp: COMMON NORMALS: normal respiratory effort, No retractions and No use of accessory muscles Cardio: COMMON NORMALS: regular rate and regular rhythm RATE: regular rate RHYTHM: regular rhythm GI: COMMON NORMALS: Soft to palpation and non-tender PALPATION: Yes Soft to palpation : COMMON NORMALS: Yes no CVA tenderness BLADDER/KIDNEY EXAM: Yes no CVA tenderness UTERUS PALPATION: No Uterus tender and Yes Other OB uterine findings OTHER: Firm fundus 2 fingerbreadths above the umbilicus Back/Pelvis: COMMON NORMALS: no CVA tenderness Extremity: COMMON NORMALS: normal to inspection, full ROM and no calf tenderness Neuro: COMMON NORMALS: patient oriented x3 SENSORIUM/ORIENTATION: Yes alert Psych: COMMON NORMALS: mental status grossly normal, Normal thought process present, cooperative, normal affect, speech normal and activity/motor behavior normal SPEECH: Yes normal speech THOUGHT PROCESS: Normal thought process present Skin: COMMON NORMALS: no rashes or lesions noted GENERAL SKIN EXAM: no rashes or lesions noted Urinary Catheter Management: Espinoza: Cath Placed During This Visit: yes, but has since been removed by the nurse Reason for Continuing Indwelling Catheter: Other Urinary Catheter Date of Insertion: 05/15/22 Urinary Catheter Time of Insertion: 06:42 Date Urinary Catheter Removed: 05/15/22 Time Urinary Catheter Discontinued: 14:45 History History History 5 Term 2 0 Miscarriages/Ectopic 3 Living Children 2 Discharge Data Studies Completed and Pending Laboratory Results WBC 11.9 10^3/uL (4.0-10.0) H 05/16/22 03:51 RBC 3.22 10^6/uL (4.1-5.3) L 05/16/22 03:51 Hgb 9.9 g/dL (11.5-15.3) L 05/16/22 03:51 Hct 30.5 % (37.0-47.0) L 05/16/22 03:51 MCV 94.7 fl (81-99) 05/16/22 03:51 MCH 30.7 pg (28.0-34.0) 05/16/22 03:51 MCHC 32.5 g/dL (30.0-36.0) 05/16/22 03:51 RDW 12.7 % (12.1-15.1) 05/16/22 03:51 Plt Count 167 10^3/cmm (130-400) 05/16/22 03:51 MPV 10.7 fL (7.4-10.4) H 05/16/22 03:51 Neut % (Auto) 73.6 % 05/15/22 04:12 Lymph % (Auto) 17.5 % 05/15/22 04:12 [place] % (Auto) 6.4 % 05/15/22 04:12 Eos % (Auto) 1.7 % 05/15/22 04:12 Baso % (Auto) 0.4 % 05/15/22 04:12 Neut # (Auto) 8.23 10^3/uL (1.8-7.7) H 05/15/22 04:12 Lymph # (Auto) 2.0 10^3/uL (0.8-4.8) 05/15/22 04:12 [place] # (Auto) 0.7 10^3/uL (0.2-0.9) 05/15/22 04:12 Eos # (Auto) 0.2 10^3/uL (0.0-0.8) 05/15/22 04:12 Baso # (Auto) 0.0 10^3/uL (0.0-0.1) 05/15/22 04:12 Nucleated RBC % (auto) 0 % 05/15/22 04:12 Nucleated RBCs # 0.0 /100WBC 05/15/22 04:12 Insulin-like GF I Positive 05/15/22 03:45 Urine Opiates Screen Negative ng/mL (Negative) 05/15/22 04:26 Ur Barbiturates Screen Negative ng/mL (Negative) 05/15/22 04:26 Ur Phencyclidine Scrn Negative ng/mL (Negative) 05/15/22 04:26 Ur Amphetamines Screen Negative ng/mL (Negative) 05/15/22 04:26 U Benzodiazepines Scrn Negative ng/mL (Negative) 05/15/22 04:26 Urine Cocaine Screen Negative ng/mL (Negative) 05/15/22 04:26 U Marijuana (THC) Screen Positive ng/mL (Negative) H 05/15/22 04:26 Blood Type O Positive 05/15/22 04:12 Rho(D) Type Positive 05/15/22 04:12 Antibody Screen Negative 05/15/22 04:12 Vitals Last Vital Signs Temp 98.2 F 05/15/22 04:00 Pulse 99 05/16/22 07:57 Resp 17 05/16/22 08:17 BP 116/95 05/16/22 07:57 Pulse Ox 99 05/15/22 08:12 O2 Del Method 05/15/22 18:02 Discharge Plan Discharge Patient Disposition: Home Condition: Stable Prescriptions: New ibuprofen 800 mg Tablet 800 mg PO TID Qty: 40 1RF acetaminophen 325 mg Tablet 650 mg PO Q6H MDD 3.9 g PRN (Reason: Mild pain or temp > 100.4) Qty: 60 1RF Continued Gummies 400 mcg-35 mg- 25 mg-5 mg tablet,chewable 1 tab PO DAILY Discharge Orders: Discharge Order (Routine); Ordered 05/16/22 Ordered By: Chaparrita Diaz Discharge Diet: Regular Discharge Activity: Resume usual activity and Increase activity as tolerated Patient Instructions: Opioid Safety Activity Restrictions/Additional Instructions: * Pelvic rest for 6 weeks * No tampons for 6 weeks Discharge Attestations SHOVEL HANDLE ASSEMBLER Time Spent in Discharge Care*: greater than 30 min Coding Level of Care Code Acute Commercial Credit Head for roland Fwd Diagnoses , delivered, current hospitalization O34.219 care and examination immediately after delivery Z39.0 Second degree laceration of perineum, delivered, current hospitalization O70.1
[2022-05-16 17:20] VITALS: BP 120/78; PULSE 103
[2022-05-16 17:30] VITALS: BP 120/78; PULSE 85; RESP 16; TEMP 36.8
--- NOTE | 2022-05-16 17:43 | ANE.PACU2 ---
Inpatient post-anesthesia follow up: Airway intact: Yes Vital signs: Temperature 98.2 F Pulse Rate 85 Respiratory Rate 17 Blood Pressure 120/78 Pulse Oximetry 99 Oxygen Delivery Me thod Room Air Oxygen Flow Rate Fraction of Inspir ed Oxygen Hydration adequate: Yes Nausea and vomiting: No Pain level: 1 Mental status: Baseline Additional Comments: EMR review
== END 2022-05-16 17:30 | disposition home or self-care (01) | DRG 807 ==
LOC: OPOB 04:24 → OBGYN 04:24
PROVIDERS: Admitting Provider Obstetrics & Gynecology; PCP Obstetrics & Gynecology; Visit Provider Obstetrics & Gynecology
DX: O42.02 Full-term premature rupture of membranes, onset of labor within 24 hours of rupture (principal); Z37.0 Single live birth; O99.214 Obesity complicating childbirth; O34.211 Maternal care for low transverse scar from previous cesarean delivery; Z3A.41 41 weeks gestation of pregnancy; O48.0 Post-term pregnancy
CPT/HCPCS: 36415; 51702; 59025; 59409; 80306; 83986; 84112; 85025; 85027; 86850; 86900; 99211; J2405; J2795

== ENCOUNTER 2024-03-12 05:12 | Inpatient (IN) | payer BC, SELFPAY ==
[2024-03-12] VITALS (46 sets, daily range): BP systolic 86–151; BP diastolic 6–90; PULSE 56–112; RESP 14–18; TEMP 35.6–36.7; O2SAT 93–100; BMI 39.3
[2024-03-12] MEDS: lactated ringers 1,000 ML 999 ML IV (06:10)
[2024-03-12 06:14] LABS: Basophils # 0.1 10^3/uL (0.0-0.1); Basophils % 0.6 %; Eosinophils # 0.3 10^3/uL (0.0-0.8); Eosinophils % 3.6 %; Hematocrit 36.7 % (36-47); Lymphocytes # 1.8 10^3/uL (0.8-4.8); Lymphocytes % 20.3 %; Mean Corpuscular HGB Conc 32.7 g/dL (30-55); Mean Corpuscular Hemoglobin 29.1 pg (27-33); Mean Corpuscular Volume 89.1 fl (85-98); Mean Platelet Volume 10.5 fL (7.4-10.4); Monocytes # 0.5 10^3/uL (0.2-0.9); Monocytes % 5.9 %; Neutrophils # 6.22 10^3/uL (1.8-7.7); Neutrophils % 69.3 %; Nucleated Red Blood Cells % 0 %; Platelet Count 257 10^3/cmm (157-399); Red Blood Count 4.12 10^6/uL (3.85-5.65); Red Cell Distribution Width 13.2 % (12.1-15.1); White Blood Count 8.97 10^3/uL (3.29-11.43)
[2024-03-12 06:15] LABS: Amphetamines Screen Urine Negative (Negative); Barbiturates Screen Urine Negative (Negative); Benzodiazepines Screen Urine Negative (Negative); Cocaine Screen Urine Negative (Negative); Opiate Screen Urine Negative (Negative); PCP Screen Urine Negative (Negative); THC Screen Urine Positive (Negative)
--- NOTE | 2024-03-12 06:48 | PM.OBGYHP ---
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 The patient has had an unremarkable and good care. GBS was negative. Concerning findings on labs. Patient denies any concerns today. Patient is not having any contractions, loss of fluid, or vaginal bleeding. Patient reports good movement. Patient is 100% positive she no longer wants kids and she was consented greater than 30 days prior to this date. Present Details : 4 Para: 2 Labs Blood type OB HPI: O (+) positive Rubella: Non-Immune RPR: Negative GBS: Negative HBsAG: Negative Specific History Indications for Section: Repeat Review of Systems General: Reports: 10 or more systems reviewed and unremarkable except in HPI and below Medications/Allergies Home Medications Medication Instructions Recorded Confirmed Last Taken Type PNV 153-FA 400 mcg-om3 35 mg-dha 1 tab PO DAILY 01/19/22 03/12/24 1 Day Ago History 25 mg-epa 5 mg-fish oil chew ~03/11/24 tablet ( Gummies) Allergies Allergy/AdvReac Type Severity Reaction Status Date / Time No Known Allergies Allergy Verified 03/12/24 05:42 PFSH EXPERIMENTAL MECH[employer]IC [employer]ACE[employer]FT PFSH: Medical History No pertinent past medical history neghx: htn, dm, thyroid, dvt/pe PCP: none Surgical History History of 2014 Family History Grandmother Breast cancer maternal Diabetes maternal Family/Other Breast cancer maternal great grandma Diabetes maternal and paternal great grandmother Mother Hypertension Grandfather Hypertension maternal Stroke maternal Denies family history of Colon cancer Ovarian cancer Heart disease Hypercholesteremia Uterine cancer Thyroid disease Social History Smoking and tobacco/nicotine status: former use of tobacco/nicotine History History History 4 Term 1 1 Miscarriages/Ectopic 1 Living Children 2 Vitals/I&O/Wt Last Vital Signs Pulse 95 03/12/24 06:12 BP 136/85 03/12/24 06:12 Pulse Ox 97 03/12/24 05:24 O2 Del Method Room Air 03/12/24 05:13 Weight last 48 hrs Weight 107.19 kg Physical Exam Const: COMMON NORMALS: no acute distress, patient oriented x3, no limitations and alert HENMT: COMMON NORMALS: normocephalic and atraumatic HEAD & SCALP: normocephalic and atraumatic Eye: COMMON NORMALS: EOMs intact bilaterally Neck/C-Spine: COMMON NORMALS: full ROM and supple Chest: COMMONS NORMALS: normal inspection of the chest and normal inspection of the breasts Resp: COMMON NORMALS: normal respiratory effort, No retractions and No use of accessory muscles Cardio: COMMON NORMALS: regular rate and regular rhythm RATE: regular rate RHYTHM: regular rhythm GI: COMMON NORMALS: Soft to palpation and non-tender PALPATION: Yes Soft to palpation : COMMON NORMALS: Yes no CVA tenderness BLADDER/KIDNEY EXAM: Yes no CVA tenderness UTERUS PALPATION: No Uterus tender OTHER: Firm fundus 2 fingerbreadths above the umbilicus Back/Pelvis: COMMON NORMALS: no CVA tenderness Extremity: COMMON NORMALS: normal to inspection, full ROM and no calf tenderness Neuro: COMMON NORMALS: patient oriented x3 SENSORIUM/ORIENTATION: Yes alert Psych: COMMON NORMALS: mental status grossly normal, Normal thought process present, cooperative, normal affect, speech normal and activity/motor behavior normal SPEECH: Yes normal speech THOUGHT PROCESS: Normal thought process present Skin: COMMON NORMALS: no rashes or lesions noted GENERAL SKIN EXAM: no rashes or lesions noted Data 03/12/24 06:06 Results Labs OB ([facility]): Obstetrics US 12/06/21 Blood Type O Positive 05/15/22 Antibody Screen Negative 05/15/22 Hct 36.7 % (36-47) 03/12/24 Hgb 12.00 g/dL (11.27-16.99) 03/12/24 Rho(D) Type Positive 05/15/22 Plt Count 257 10^3/cmm (157-399) 03/12/24 Hep Bs Antigen Non-reactive (Nonreactive) 01/24/22 Hepatitis C Antibody Non-reactive (Nonreactive) 01/24/22 Rubella IgG Antibody 13.3 IU/mL (0.0-10.0) H 01/24/22 RPR Nonreactive (Nonreactive) 01/24/22 TSH 1.11 uIU/mL (0.27-4.20) 01/24/22 Gest Glucose Tolerance 109 mg/dL 03/03/22 Uric Acid 4.8 mg/dL (2.4-5.7) 04/22/22 Ser , Semi-Qnt 1907.00 mIU/mL 03/31/21 Urine Opiates Screen Negative ng/mL (Negative) 03/12/24 Ur Barbiturates Screen Negative ng/mL (Negative) 03/12/24 Ur Phencyclidine Scrn Negative ng/mL (Negative) 03/12/24 Ur Amphetamines Screen Negative ng/mL (Negative) 03/12/24 U Benzodiazepines Scrn Negative ng/mL (Negative) 03/12/24 Urine Cocaine Screen Negative ng/mL (Negative) 03/12/24 U Marijuana (THC) Screen Positive ng/mL (Negative) H 03/12/24 Micro Urine Specimen 01/19/22 Pap Smear Interpret See note 01/19/22 A&P Assessment and plan (1) History of delivery: (2) Term , repeat: Proceed with repeat lower transverse . Patient was consented for procedure. Patient still request tubal ligation. (3) Request for sterilization: Attestations Medical Necessity Statement*: Patient is to be admitted for repeat low-transverse . Anticipate 2 midnight stay. Coding Level of Care Code Acute Code for Chg Fwd Diagnoses History of delivery Z98.891 Term , repeat Z34.90 Request for sterilization Z30.2
[2024-03-12] MEDS: metoclopramide 5 mg/mL SDV 2 mL 10 MG IVP (06:50)
[2024-03-12] MEDS: famotidine 20 mg/2 mL INJ IVP (06:50)
[2024-03-12] MEDS: citric acid-sodium citrate 30 mL UDC PO (06:51)
--- NOTE | 2024-03-12 08:40 | P.OP_ITS ---
Operative Report Date of procedure: March 12, 2024 Pre-op diagnosis: Term , history of section Post-op diagnosis: Same, viable infant male Procedure done: Repeat lower transverse with tubal ligation Specimens removed/disposition: Bilateral fallopian tubes Surgeon: Emilinao Rubio MD Anesthesia: Spinal Estimated blood loss (mL): 300 IV fluids (mL): 2,200 Urine output: 300 mL Complications: None Brief History: This is a 23-year-old G4, P3 that presented for elective repeat lower transverse with tubal ligation. Procedure: Patient was taken to the operating room where epidural anesthesia was found to be adequate. She was prepped and draped in the normal sterile fashion in a dorsal supine position with a leftward tilt. Skin incision was made with scalpel and carried out to the underlying layer of fascia which was incised in the midline. Fascial incision was then extended laterally with Buck scissors bilaterally. The superior aspect of the fascial incision was grasped with Manuel clamps elevated and dissected off the rectus muscles with Buck's. The inferior aspect of the fascial incision was grasped with Henderson's and in likewise manner was elevated and dissected off with Buck's. Peritoneum was then entered digitally and extended with good visualization of the bladder. Bladder blade was then inserted. Lateral flap was created and bladder blade was repositioned. Uterine incision was then created in a transverse fashion in the lower uterine segment with scalpel and extended digitally. Clear fluid noted. Infant's head was delivered atraumatically nose and mouth suctioned with bulb, cord clamped and cut and handed off to waiting nursing staff. The placenta was then expressed and uterus exteriorized from the abdomen. And cleared of all clots and debris. Uterine incision was then repaired in a running locked fashion with 0 Vicryl. Extension of uterine tear was noted vertically and was also repaired with 0 Vicryl. Excellent hemostasis was noted. Left fallopian tube was grasped with Osgood's and excised using LigaSure. Same procedure was performed on right fallopian tube. Uterus was then returned to the abdomen, gutters were cleared of all clots and debris. PEritoneum was then closed in a running fashion with 3-0 Vicryl. Fascia was then closed with 0 Vicryl in a running fashion. Subcutaneous tissue was closed with 2-0 Vicryl and skin was closed with 4-0 Monocryl on a Ravinder needle. The incision was reinforced with Steri- Strips and pressure bandage was over the wound. Sponge, laps, and needle count was correct x2. 2 g Ancef was given prior to the procedure. Patient was taken recovery in stable condition.
[2024-03-12] MEDS: ketorolac 30 mg/mL INJ IVP (13:57)
[2024-03-12 20:38] LABS: Hematocrit 37.8 % (36-47); Mean Corpuscular HGB Conc 32.8 g/dL (30-55); Mean Corpuscular Hemoglobin 28.9 pg (27-33); Mean Corpuscular Volume 88.1 fl (85-98); Mean Platelet Volume 10.9 fL (7.4-10.4); Platelet Count 273 10^3/cmm (157-399); Red Blood Count 4.29 10^6/uL (3.85-5.65); White Blood Count 17.67 10^3/uL (3.29-11.43)
[2024-03-12] MEDS: ibuprofen 800 mg tablet PO (22:32)
[2024-03-12] MEDS: docusate sodium 100 mg Capsule PO (22:33)
[2024-03-12] MEDS: simethicone 80 mg Chew PO (22:33)
[2024-03-13 02:22] VITALS: BP 121/65; PULSE 76
[2024-03-13 04:32] VITALS: BP 116/61; PULSE 81; RESP 16; TEMP 36.9
[2024-03-13] MEDS: simethicone 80 mg Chew PO (04:39)
[2024-03-13] MEDS: acetaminophen 325 mg Tablet 650 MG PO (04:39)
--- NOTE | 2024-03-13 07:27 | P.PN_ITS ---
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 Patient has no acute concerns today. There are no nursing concerns. Patient has been up out of bed and has urinated without difficulty. Patient reports good pain control. Vital signs have been stable Labor: Amniotic Membrane Status: Intact Monitor Mode: External C ontraction Pattern: Absent Status: Category I Post /CS: baby status: doing well [place] feeding status: e xclusively bottle feeding Vitals/I&O/Wt Last Vital Signs Temp 98.5 F 03/13/24 04:32 Pulse 81 03/13/24 04:32 Resp 16 03/13/24 04:32 BP 116/61 03/13/24 04:32 Pulse Ox 97 03/12/24 22:31 O2 Del Method Room Air 03/13/24 04:32 03/12/24 03/13/24 03/13/24 22:59 06:59 14:59 Intake Total 1000 / 1000 Output Total 1300 / 1500 400 / 1900 Balance -300 / -500 -400 / -900 Weight last 48 hrs Weight 107.19 kg Physical Exam 2 Const: COMMON NORMALS: no acute distress, patient oriented x3, no limitations and alert HENMT: COMMON NORMALS: normocephalic and atraumatic HEAD & SCALP: n ormocephalic and atraumatic Eye: COMMON NORMALS: EOMs intact bilaterally Neck/C-Spine: COMMON NORMALS: full ROM and supple Chest: COMMONS NORMALS: normal inspection of the chest and normal inspection of the breasts Resp: COMMON NORMALS: normal respiratory effort, No retractions and No use of accessory muscles Cardio: COMMON NORMALS: regular rate and regular rhythm RATE: regular rate RHYTHM: regular rhythm GI: COMMON NORMALS: Soft to palpation and non-tender PALPATION: Yes Soft to palpation : COMMON NORMALS: Yes no CVA tenderness BLADDER/KIDNEY EXAM: Yes no CVA tenderness UTERUS PALPATION: No Uterus tender OTHER: Firm fundus 2 fingerbreadths above the umbilicus Back/Pelvis: COMMON NORMALS: no CVA tenderness Extremity: COMMON NORMALS: normal to inspection, full ROM and no calf tenderness Neuro: COMMON NORMALS: patient oriented x3 SENSORIUM/ORIENTATION: Yes alert Psych: COMMON NORMALS: mental status grossly normal, Normal thought process present, cooperative, normal affect, speech normal and activity/motor behavior normal SPEECH: Yes normal speech THOUGHT PROCESS: Normal thought process present Skin: COMMON NORMALS: no rashes or lesions noted GENERAL SKIN EXAM: no rashes or lesions noted Urinary Catheter Management: Espinoza: Cath Placed During This Visit: yes, but has since been removed by the nurse Reason for Continuing Indwelling Catheter: Decision to DC Catheter Urinary Catheter Date of Insertion: 03/12/24 Urinary Catheter Time of Insertion: 07:15 Date Urinary Catheter Removed: 03/12/24 Time Urinary Catheter Discontinued: 20:15 Data 03/12/24 20:11 A&P Assessment and plan (1) care following delivery: Continue with routine care. Attestations 2 Medical Necessity Statement*: Patient admitted for repeat low-transverse . Anticipate discharge tomorrow Coding Level of Care Code Acute Code for Chg Fwd Diagnoses care following delivery Z39.2
[2024-03-13] MEDS: docusate sodium 100 mg Capsule PO (09:39)
[2024-03-13] MEDS: PRENATAL VIT NO.130/IRON/FOLIC 1 EACH TABLET PO (09:39)
[2024-03-13] MEDS: ibuprofen 800 mg tablet PO ×3 (09:39→20:43)
[2024-03-13 09:41] VITALS: BP 133/78; PULSE 95; TEMP 36.7
[2024-03-13 20:36] VITALS: PULSE 88; O2SAT 96
[2024-03-13 20:38] VITALS: BP 128/66; PULSE 88; PULSE 90; RESP 16; TEMP 36.8; O2SAT 93; O2SAT 97
[2024-03-14 04:00] VITALS: BP 145/72; PULSE 83; RESP 16; TEMP 36.4; O2SAT 97
[2024-03-14 04:41] VITALS: PULSE 83; O2SAT 97
[2024-03-14 04:42] VITALS: BP 145/72; PULSE 82
[2024-03-14] MEDS: HYDROcodone-acetaminophen 5-325 mg Tablet PO (04:46)
--- NOTE | 2024-03-14 06:39 | PM.OBGYDC ---
Discharge Providers [facility] Date of Admission: 03/12/24 05:12 Date of Discharge: 03/14/24 Attending Provider at Admission: Emiliano Rubio MD Attending Provider at Discharge: Emiliano Rubio MD Diagnoses at Discharge Discharge Diagnosis (1) care following delivery: Status: Acute Reason for Visit Reason for Visit: Scheduled Section Hospital Course Hospital Course This is a 23-year-old G4, P3 that presented for repeat low-transverse and tubal ligation. The patient underwent procedure and delivery without any significant complication. The patient did not have any complications. Supportive care has been unremarkable. Patient is ambulating and urinating without difficulty. Patient's pain is controlled on current medication. Lochia has been appropriate. Information Peripartum Data: Infant Delivery Method: Physical Exam Const: COMMON NORMALS: no acute distress, patient oriented x3, no limitations and alert HENMT: COMMON NORMALS: normocephalic and atraumatic HEAD & SCALP: normocephalic and atraumatic Eye: COMMON NORMALS: EOMs intact bilaterally Neck/C-Spine: COMMON NORMALS: full ROM and supple Chest: COMMONS NORMALS: normal inspection of the chest and normal inspection of the breasts Resp: COMMON NORMALS: normal respiratory effort, No retractions and No use of accessory muscles Cardio: COMMON NORMALS: regular rate and regular rhythm RATE: regular rate RHYTHM: regular rhythm GI: COMMON NORMALS: Soft to palpation and non-tender PALPATION: Yes Soft to palpation : COMMON NORMALS: Yes no CVA tenderness BLADDER/KIDNEY EXAM: Yes no CVA tenderness UTERUS PALPATION: No Uterus tender OTHER: Firm fundus 2 fingerbreadths above the umbilicus Back/Pelvis: COMMON NORMALS: no CVA tenderness Extremity: COMMON NORMALS: normal to inspection, full ROM and no calf tenderness Neuro: COMMON NORMALS: patient oriented x3 SENSORIUM/ORIENTATION: Yes alert Psych: COMMON NORMALS: mental status grossly normal, Normal thought process present, cooperative, normal affect, speech normal and activity/motor behavior normal SPEECH: Yes normal speech THOUGHT PROCESS: Normal thought process present Skin: COMMON NORMALS: no rashes or lesions noted GENERAL SKIN EXAM: no rashes or lesions noted WOUNDS: Yes surgical site (Clean dry and intact) Urinary Catheter Management: Espinoza: Cath Placed During This Visit: yes, but has since been removed by the nurse Reason for Continuing Indwelling Catheter: Decision to DC Catheter Urinary Catheter Date of Insertion: 03/12/24 Urinary Catheter Time of Insertion: 07:15 Date Urinary Catheter Removed: 03/12/24 Time Urinary Catheter Discontinued: 20:15 History History History 4 Term 1 1 Miscarriages/Ectopic 1 Living Children 3 Discharge Data Studies Completed and Pending Pending at discharge Category Date Time Status Pathology: Surgical [PTH] Routine Pth 03/12/24 11:34 Received Laboratory Results WBC 17.67 10^3/uL (3.29-11.43) H 03/12/24 20:11 RBC 4.29 10^6/uL (3.85-5.65) 03/12/24 20:11 Hgb 12.40 g/dL (11.27-16.99) 03/12/24 20:11 Hct 37.8 % (36-47) 03/12/24 20:11 MCV 88.1 fl (85-98) 03/12/24 20:11 MCH 28.9 pg (27-33) 03/12/24 20:11 MCHC 32.8 g/dL (30-55) 03/12/24 20:11 RDW 13.0 % (12.1-15.1) 03/12/24 20:11 Plt Count 273 10^3/cmm (157-399) 03/12/24 20:11 MPV 10.9 fL (7.4-10.4) H 03/12/24 20:11 Neut % (Auto) 69.3 % 03/12/24 06:06 Lymph % (Auto) 20.3 % 03/12/24 06:06 [place] % (Auto) 5.9 % 03/12/24 06:06 Eos % (Auto) 3.6 % 03/12/24 06:06 Baso % (Auto) 0.6 % 03/12/24 06:06 Neut # (Auto) 6.22 10^3/uL (1.8-7.7) 03/12/24 06:06 Lymph # (Auto) 1.8 10^3/uL (0.8-4.8) 03/12/24 06:06 [place] # (Auto) 0.5 10^3/uL (0.2-0.9) 03/12/24 06:06 Eos # (Auto) 0.3 10^3/uL (0.0-0.8) 03/12/24 06:06 Baso # (Auto) 0.1 10^3/uL (0.0-0.1) 03/12/24 06:06 Nucleated RBC % (auto) 0 % 03/12/24 06:06 Nucleated RBCs # 0.0 /100WBC 03/12/24 06:06 Urine Opiates Screen Negative ng/mL (Negative) 03/12/24 06:00 Ur Barbiturates Screen Negative ng/mL (Negative) 03/12/24 06:00 Ur Phencyclidine Scrn Negative ng/mL (Negative) 03/12/24 06:00 Ur Amphetamines Screen Negative ng/mL (Negative) 03/12/24 06:00 U Benzodiazepines Scrn Negative ng/mL (Negative) 03/12/24 06:00 Urine Cocaine Screen Negative ng/mL (Negative) 03/12/24 06:00 U Marijuana (THC) Screen Positive ng/mL (Negative) H 03/12/24 06:00 Blood Type O Positive 03/12/24 06:06 Rho(D) Type Rh positive 03/12/24 06:06 Antibody Screen Negative 03/12/24 06:06 Vitals Last Vital Signs Temp 97.6 F 03/14/24 04:00 Pulse 82 03/14/24 04:42 Resp 16 03/14/24 04:00 BP 145/72 03/14/24 04:42 Pulse Ox 97 03/14/24 04:41 O2 Del Method Room Air 03/14/24 04:00 Results Labs OB ([facility]): Obstetrics US 12/06/21 Blood Type O Positive 03/12/24 Antibody Screen Negative 03/12/24 Hct 37.8 % (36-47) 03/12/24 Hgb 12.40 g/dL (11.27-16.99) 03/12/24 Rho(D) Type Rh positive 03/12/24 Plt Count 273 10^3/cmm (157-399) 03/12/24 Hep Bs Antigen Non-reactive (Nonreactive) 01/24/22 Hepatitis C Antibody Non-reactive (Nonreactive) 01/24/22 Rubella IgG Antibody 13.3 IU/mL (0.0-10.0) H 01/24/22 RPR Nonreactive (Nonreactive) 01/24/22 TSH 1.11 uIU/mL (0.27-4.20) 01/24/22 Gest Glucose Tolerance 109 mg/dL 03/03/22 Uric Acid 4.8 mg/dL (2.4-5.7) 04/22/22 Ser , Semi-Qnt 1907.00 mIU/mL 03/31/21 Urine Opiates Screen Negative ng/mL (Negative) 03/12/24 Ur Barbiturates Screen Negative ng/mL (Negative) 03/12/24 Ur Phencyclidine Scrn Negative ng/mL (Negative) 03/12/24 Ur Amphetamines Screen Negative ng/mL (Negative) 03/12/24 U Benzodiazepines Scrn Negative ng/mL (Negative) 03/12/24 Urine Cocaine Screen Negative ng/mL (Negative) 03/12/24 U Marijuana (THC) Screen Positive ng/mL (Negative) H 03/12/24 Micro Urine Specimen 01/19/22 Pap Smear Interpret See note 01/19/22 Discharge Plan Discharge Patient Disposition: Home Condition: Stable Prescriptions: New hydrocodone-acetaminophen 5-325 mg Tablet 1 - 2 tab PO Q4H PRN (Reason: Moderate To Severe Pain) Qty: 20 0RF Continued Gummies 400 mcg-35 mg- 25 mg-5 mg tablet,chewable 1 tab PO DAILY Discharge Orders: Discharge Order (Routine); Ordered 03/14/24 Ordered By: Emiliano Rubio Referrals: Emiliano Rubio MD [Physician] - 1 week Discharge Diet: Usual diet Discharge Activity: Limit activity as instructed Patient Instructions: Depression (DC), Bleeding (DC), Preeclampsia and Eclampsia After Delivery (GEN), (DC), Hemorrhage (DC), OB Discharge Report, OB Food/Drug Interaction Guide, OB Care at Home, Opioid Safety, OB Home Care, Abnormal Bleeding Discharge Attestations [facility] Time Spent in Discharge Care*: less than 30 min Coding Level of Care Code Acute Code for Chg Fwd Diagnoses care following delivery Z39.2
[2024-03-14 09:07] VITALS: BP 127/82; PULSE 91; TEMP 36.6
[2024-03-14] MEDS: PRENATAL VIT NO.130/IRON/FOLIC 1 EACH TABLET PO (09:14)
[2024-03-14] MEDS: docusate sodium 100 mg Capsule PO (09:14)
[2024-03-14] MEDS: ibuprofen 800 mg tablet PO (09:15)
[2024-03-14 09:25] VITALS: BP 127/82; PULSE 91; RESP 16; TEMP 36.6; O2SAT 99
== END 2024-03-14 09:35 | disposition home or self-care (01) | DRG 785 ==
LOC: OPOB 05:12 → OBGYN 05:12
PROVIDERS: Admitting Provider Family Medicine; Visit Provider Family Medicine
PROC: 10D00Z1 Extraction of Products of Conception, Low, Open Approach (ICD-10-PCS; CPT 59514; principal; 2024-03-12 07:00)
DX: O75.89 Other specified complications of labor and delivery (principal); Z3A.00 Weeks of gestation of pregnancy not specified; Z37.0 Single live birth; Z28.39 Other underimmunization status; Z30.2 Encounter for sterilization
CPT/HCPCS: 36415; 80306; 85025; 85027; 86850; 86900; 88302; 96374; 96376; J1100; J1885; J2274; J2371; J2405; J2765; J3010; J3490; J7120